=== PATIENT | male | born 2000 | race Caucasian/White ===

== ENCOUNTER 2021-03-29 19:18 | Emergency (ER) | payer BC, OTHER ==
[2021-03-29 20:51] LABS: STREP A BY PCR NOT DETECTED (NOT DETECT)
[2021-03-29 21:05] LABS: CORONAVIRUS COVID-19 NAA POSITIVE (NEGATIVE)
== END 2021-03-29 21:45 | disposition home or self-care (01) ==
LOC: JD.ED 19:18
DX: U07.1 COVID-19 (principal); J45.909 Unspecified asthma, uncomplicated
CPT/HCPCS: 0240U; 71045; 87651; 99283; 99284